=== PATIENT | female | born 1950 | race Caucasian/White ===

== ENCOUNTER 2023-09-26 08:19 | Outpatient (CLI) | payer MEDICARE, OTHER | END 2023-09-26 08:20 | disposition home or self-care (01) | LOC: CSHCT 08:19 | PROVIDERS: ATTEND Nurse Practitioner | DX: R10.9 Unspecified abdominal pain (principal); E78.5 Hyperlipidemia, unspecified; M51.34 Other intervertebral disc degeneration, thoracic region; M48.04 Spinal stenosis, thoracic region; G95.89 Other specified diseases of spinal cord; G95.9 Disease of spinal cord, unspecified; Z13.828 Encounter for screening for other musculoskeletal disorder; K80.20 Calculus of gallbladder without cholecystitis without obstruction; M47.812 Spondylosis without myelopathy or radiculopathy, cervical region; M43.16 Spondylolisthesis, lumbar region; M47.816 Spondylosis without myelopathy or radiculopathy, lumbar region; S22.080A Wedge compression fracture of T11-T12 vertebra, initial encounter for closed fracture | CPT/HCPCS: 72125; 72128; 72131; 74176 ==